=== PATIENT | male | born 1995 | race American Indian/Alaskan Native ===

== ENCOUNTER 2022-06-07 16:33 | Emergency (ER) | payer SELFPAY ==
[2022-06-07] MEDS ORDERED: MORPHINE 4 MG/1 ML INJ IV ONE (17:31)
[2022-06-07] MEDS ORDERED: SODIUM CHLORIDE 0.9% 1000 ML 1,000 ML IV ONE (17:31)
[2022-06-07] MEDS ORDERED: FAMOTIDINE 20 MG/2 ML INJ IV ONE (17:31)
[2022-06-07] MEDS ORDERED: ONDANSETRON 4 MG/2 ML INJ IV ONE (17:31)
--- NOTE | 2022-06-07 17:58 | Emergency Department Report ---
ED N/V/D HPI - General Chief complaint: Nausea/Vomiting/Diarrhea Stated complaint: NAUSEA/VOMITTING Source: EMS Mode of arrival: Stretcher Limitations: No Limitations - History of Present Illness Initial comments: Patient is a 26-year-old -[place] male with no past medical history presents to the ED with complaint of acute onset persistent diffuse abdominal pain, nausea, vomiting and diarrhea for the last 12 hours. Patient states that he has not been able to keep anything down because of intractable nausea and vomiting and diarrhea. Patient states that no one else at home is had similar symptoms. Patient states that the symptoms started after he ate some salmon fish from a restaurant about 24 hours ago. Patient denies dizziness, syncope, chest pain, shortness of breath, sore throat, fever, chills, dysuria, urinary frequency and urgency, penile discharge, hematuria, testicular pain, headache or body aches and pains. MD complaint: nausea, vomiting, diarrhea, abdominal pain (diffuse) -: hour(s) (12) Description of Vomiting: food contents, watery, bilious Description of Diarrhea: water Associated Abdominal Pain: Yes (diffuse) Location: diffuse Radiation: none Severity: severe Pain Scale: 8 Quality: cramping, sharp Consistency: constant Improves with: none Worsens with: vomiting Context: possible food poisoning, sick contacts Associated Symptoms: denies other symptoms, loss of appetite, malaise, nausea/vomiting, weakness. denies: myalgias, cough, diaphoresis, fever/chills, headaches, rash, dysuria, shortness of breath, syncope - Related Data Previous Rx's Medication Instructions Recorded Last Taken Type Dicyclomine [Bentyl] 20 mg PO Q6H PRN #30 tab 06/07/22 Unknown Rx Famotidine [Pepcid] 20 mg PO BID #40 tablet 06/07/22 Unknown Rx Ondansetron [Zofran Odt] 4 mg PO Q8HR PRN #20 tab.rapdis 06/07/22 Unknown Rx Allergies Allergy/AdvReac Type Severity Reaction Status Date / Time Penicillins Allergy Unknown Verified 06/07/22 16:49 ED Review of Systems ROS: Stated complaint: NAUSEA/VOMITTING Other details as noted in HPI Constitutional: denies: chills, fever Eyes: denies: eye pain, eye discharge, vision change ENT: denies: ear pain, throat pain Respiratory: denies: cough, shortness of breath, wheezing Cardiovascular: denies: chest pain, palpitations Endocrine: no symptoms reported Gastrointestinal: abdominal pain (diffuse), nausea, vomiting, diarrhea Genitourinary: denies: urgency, dysuria Musculoskeletal: denies: back pain, joint swelling, arthralgia Skin: denies: rash, lesions Neurological: denies: headache, weakness, paresthesias Psychiatric: denies: anxiety, depression Hematological/Lymphatic: denies: easy bleeding, easy bruising ED Past Medical Hx - Past Medical History Previous Medical History?: No - Medications Home Medications: Home Medications Medication Instructions Recorded Confirmed Last Taken Type Dicyclomine [Bentyl] 20 mg PO Q6H PRN #30 tab 06/07/22 Unknown Rx Famotidine [Pepcid] 20 mg PO BID #40 tablet 06/07/22 Unknown Rx Ondansetron [Zofran Odt] 4 mg PO Q8HR PRN #20 tab.rapdis 06/07/22 Unknown Rx ED Physical Exam - General Limitations: No Limitations General appearance: alert, in no apparent distress - Head Head exam: Present: atraumatic, normocephalic, normal inspection - Eye Eye exam: Present: normal appearance, PERRL, EOMI Pupils: Present: normal accommodation - ENT ENT exam: Present: normal exam, normal orophraynx, mucous membranes moist, TM's normal bilaterally, normal external ear exam - Neck Neck exam: Present: normal inspection, full ROM. Absent: tenderness - Respiratory Respiratory exam: Present: normal lung sounds bilaterally. Absent: respiratory distress, wheezes, rales, rhonchi, chest wall tenderness, accessory muscle use, decreased breath sounds, prolonged expiratory - Cardiovascular Cardiovascular Exam: Present: normal rhythm, tachycardia, normal heart sounds. Absent: systolic murmur, diastolic murmur, rubs, gallop - GI/Abdominal GI/Abdominal exam: Present: soft, tenderness (diffuse), normal bowel sounds. Absent: hyperactive bowel sounds, hypoactive bowel sounds, organomegaly, mass - Extremities Exam Extremities exam: Present: normal inspection, full ROM, normal capillary refill. Absent: tenderness - Back Exam Back exam: Present: normal inspection, full ROM. Absent: tenderness, CVA tenderness (R), CVA tenderness (L), muscle spasm, paraspinal tenderness, vertebral tenderness - Neurological Exam Neurological exam: Present: alert, oriented X3, CN II-XII intact, normal gait, reflexes normal - Psychiatric Psychiatric exam: Present: normal affect, normal mood - Skin Skin exam: Present: warm, dry, intact, normal color. Absent: rash ED Course Vital Signs 06/07/22 16:45 Temperature 97.9 F Pulse Rate 100 H Respiratory 16 Rate Blood Pressure 141/68 [Left] O2 Sat by Pulse 100 Oximetry ED Medical Decision Making - Lab Data Result diagrams: 06/07/22 17:54 06/07/22 17:54 - Radiology Data [facility] [address] [place] [address] Cat Scan Report Signed Patient: LILI PARSON MR#: [id number] : 1995 Acct:[id number] Age/Sex: 26 / M ADM Date: 06/07/22 Loc: ED Attending Dr: Ordering Physician: ANDRIY NICHOLS Date of Service: 06/07/22 Procedure(s): CT abdomen pelvis w con Accession Number(s): [id number] cc: ANDRIY NICHOLS CT ABDOMEN AND PELVIS WITH CONTRAST INDICATION: abdominal pain, N/V/D. TECHNIQUE: Axial CT images were obtained through the abdomen and pelvis after 100 cc Omni [address] scans at this location are performed using CT dose reduction for ALARA by means of automated exposure control. COMPARISON: None available. FINDINGS: LOWER CHEST: No significant abnormality. LIVER: No significant abnormality. GALLBLADDER: No significant abnormality. BILE DUCTS: No significant abnormality. PANCREAS: No significant abnormality. SPLEEN: No significant abnormality. ADRENALS: No significant abnormality. RIGHT KIDNEY and URETER: No significant abnormality. LEFT KIDNEY and URETER: No significant abnormality. STOMACH and SMALL BOWEL: Fluid-filled nondilated loops of small bowel COLON: No significant abnormality. APPENDIX: No significant abnormality. PERITONEUM: No free fluid. No free air. No fluid collection. LYMPH NODES: No significant adenopathy. AORTA and ARTERIES: No significant abnormality. IVC and VEINS: No significant abnormality. URINARY BLADDER: No significant abnormality. REPRODUCTIVE ORGANS: No significant abnormality. ADDITIONAL FINDINGS: None. SKELETAL SYSTEM: No significant abnormality. IMPRESSION: 1. Fluid-filled nondilated loops of small bowel likely secondary to viral gastroenteritis. No bowel obstruction Signer Name: Lam Farley MD Signed: 06/07/2022 7:57 PM Workstation Name: [id number] Transcribed By: TL Dictated By: Lam Farley MD Electronically Authenticated By: Lam Farley MD Signed Date/Time: 06/07/221956 DD/ 54 TD/TT: - Medical Decision Making This is a 26-year-old -[place] male with no past medical history presents to the ED with complaint of acute onset persistent diffuse abdominal pain, nausea, vomiting and diarrhea for the last 12 hours. Patient states that he has not been able to keep anything down because of intractable nausea and vomiting and diarrhea. Patient states that no one else at home is had similar symptoms. Patient states that the symptoms started after he ate some salmon fish from a restaurant about 24 hours ago. In the ED, patient is alert and oriented x3 and is not in any distress. Patient was treated for pain in the ED and also treated for nausea and vomiting and given normal saline 2 L IV fluid bolus. Patient also received antacids. Lab test results were reviewed and are all nonactionable except for acute leukocytosis of 12,100. Patient however declined to give urine for urinalysis. On reevaluation, patient felt better, patient was able to keep oral fluids in the ED with no nausea or vomiting. The abdomen pelvis CT scan with IV contrast showed no acute abnormalities but fluid- filled bowel consistent with viral gastroenteritis. Patient is ambulatory fully in the ED with no difficulty and is hemodynamically stable. Patient was discharged home on medications and advised to maintain a clear liquid diet for 12 to 24 hours, drink plenty of fluids, take medication for nausea and vomiting and to follow-up with patient was also advised to return to the ED immediately if symptoms get worse. Patient was advised to follow-up with his primary care physician in 5 to 7 days for reevaluation. - Differential Diagnosis Pancreatitis; Gastroenteritis; Pancreatitis; Colitis; UTI; GERD Critical care attestation.: If time is entered above; I have spent that time in minutes in the direct care of this critically ill patient, excluding procedure time. ED Disposition Clinical Impression: Abdominal pain in male, Nausea, vomiting and diarrhea, Viral gastroenteritis Disposition: HOME / SELF CARE / HOMELESS Is pt being admited?: No Does the pt Need Aspirin: No Condition: Stable Instructions: Viral Gastroenteritis, Adult, [id number], Nausea and Vomiting, Adult, [id number], Abdominal Pain, Adult, [id number] Additional Instructions: All lab test results were reviewed and are all nonactionable. Abdomen pelvis CT scan with IV contrast showed no acute abnormalities but signs consistent with viral gastroenteritis or food poisoning. Therefore maintain a clear liquid diet for 12 to 24 hours, drink plenty of fluids, take medication as advised and follow-up with your primary care physician in 5 to 7 days for reevaluation. Return to the ED immediately if symptoms get worse. Prescriptions: Dicyclomine [Bentyl] 20 mg PO Q6H PRN #30 tab PRN Reason: Abdominal pain Famotidine [Pepcid] 20 mg PO BID #40 tablet Ondansetron [Zofran Odt] 4 mg PO Q8HR PRN #20 tab.rapdis PRN Reason: Nausea Referrals: [facility] [Provider Group] - 3-5 Days Time of Disposition: 18:03 Print Language: THAI
[2022-06-07 18:08] LABS: Basophils % (Auto) 0.3 % (0.0-1.8); Eosinophils % (Auto) 0.1 % (0.0-4.3); Hematocrit 42.5 % (35.5-45.6); Hemoglobin 14.5 gm/dl (11.8-15.2); Lymphocytes # (Auto) 0.5 K/mm3 (1.2-5.4); Lymphocytes % (Auto) 3.9 % (13.4-35.0); Mean Corpuscular HGB Conc 34 % (32-34); Mean Corpuscular Volume 96 fl (84-94); Monocytes # (Auto) 0.7 K/mm3 (0.0-0.8); Platelet Count 198 K/mm3 (140-440); Red Blood Count 4.44 M/mm3 (3.65-5.03); Red Cell Distribution Width 13.4 % (13.2-15.2)
[2022-06-07 18:31] LABS: Alanine Aminotransferase 20 units/L (7-56); Albumin 4.5 g/dL (3.9-5); BUN/Creatinine Ratio 10; Blood Urea Nitrogen 10 mg/dL (9-20); Calcium 9.6 mg/dL (8.4-10.2); Hemolysis Index 30
--- NOTE | 2022-06-07 20:01 | Cat Scan Report ---
CT ABDOMEN AND PELVIS WITH CONTRAST INDICATION: abdominal pain, N/V/D. TECHNIQUE: Axial CT images were obtained through the abdomen and pelvis after 100 cc Omni [address] scans at this location are performed using CT dose reduction for ALARA by means of automated expos ure control. COMPARISON: None available. FINDINGS: LOWER CHEST: No significant abnormality. LIVER: No significant abnormality. GALLBLADDER: No significant abnormality. BILE DUCTS: No significant abnormality. PANCREAS: No significant abnormality. SPLEEN: No significant abnormality. ADRENALS: No significant abnormality. RIGHT KIDNEY and URETER: No significant abnormality. LEFT KIDNEY and URETER: No significant abnormality. STOMACH and SMALL BOWEL: Fluid-filled nondilated loops of small bowel COLON: No significant abnormality. APPENDIX: No significant abnormality. PERITONEUM: No free fluid. No free air. No fluid collection. LYMPH NODES: No significant adenopathy. AORTA and ARTERIES: No significant abnormality. IVC and VEINS: No significant abnormality. URINARY BLADDER: No significant abnormality. REPRODUCTIVE ORGANS: No significant abnormality. ADDITIONAL FINDINGS: None. SKELETAL SYSTEM: No significant abnormality. IMPRESSION: 1. Fluid-filled nondilated loops of small bowel likely secondary to viral gastroenteritis. No bowel o bstruction Signer Name: Lam Farley MD Signed: 06/07/2022 7:57 PM Workstation Name: [id number]
[2022-06-07 22:23] VITALS: BP 134/72
== END 2022-06-07 19:00 | disposition home or self-care (01) ==
LOC: ED 16:33
DX: A08.4 Viral intestinal infection, unspecified (principal); R10.9 Unspecified abdominal pain; R11.2 Nausea with vomiting, unspecified; R19.7 Diarrhea, unspecified; Z88.0 Allergy status to penicillin; Z79.899 Other long term (current) drug therapy
CPT/HCPCS: 36415; 74177; 80053; 83690; 85025; 96361; 96374; 96375; 99284; J2270; J2405; J3490; J7030; Q9967